=== PATIENT | female | born 1965 | race Asian ===

== ENCOUNTER 2017-09-12 06:25 | Inpatient (IN) | payer OTHER ==
[2017-09-12] MEDS ORDERED: BISACODYL (EC) 5 MG TAB PO (07:30)
[2017-09-12] MEDS ORDERED: DOCUSATE SODIUM 100 MG CAP PO ×2 (07:30→08:30)
[2017-09-12] MEDS ORDERED: NITROGLYCERIN (SL) 0.4 MG TAB SL (07:30)
[2017-09-12] MEDS ORDERED: NACL 0.9% 3 ML SYG IV ×2 (07:30→08:30)
[2017-09-12] MEDS: PIPER-TAZO 3.375 GM IV (PMX) 100 ML IVPB ×3 (08:08→17:44)
[2017-09-12] MEDS ORDERED: ALBUTEROL/IPRATROPIUM (NEB) 3 ML AMP NEB (08:30)
[2017-09-12] MEDS ORDERED: MAGNESIUM HYDROXIDE 30ML CUP PO (08:30)
[2017-09-12 08:41] LABS: ADD MAN DIFF? NO
[2017-09-12 08:46] LABS: ABNORMAL IP MESSAGE 1; BASOPHILS % 0.2 % (0.0-2.0); EOSINOPHILS # 0.1 10^3/ul (0.0-0.5); EOSINOPHILS % 0.7 % (0.0-7.0); HEMATOCRIT 40.7 % (37.0-47.0); HEMOGLOBIN 13.5 g/dl (12.0-16.0); LYMPHOCYTES # 2.7 10^3/ul (0.8-2.9); LYMPHOCYTES % 15.5 % (15.0-51.0); MEAN CORPUSCULAR HEMOGLOBIN 30.2 pg (29.0-33.0); MEAN CORPUSCULAR HGB CONC 33.2 g/dl (32.0-37.0); MEAN CORPUSCULAR VOLUME 91.1 fl (82.0-101.0); MEAN PLATELET VOLUME 10.2 fl (7.4-10.4); MONOCYTE # 1.6 10^3/ul (0.3-0.9); MONOCYTES % 9.3 % (0.0-11.0); NEUTROPHIL # 12.9 10^3/ul (1.6-7.5); PLATELET COUNT 319 10^3/UL (140-415); RED BLOOD COUNT 4.47 10^6/ul (4.20-5.40); RED CELL DISTRIBUTION WIDTH 11.5 % (11.5-14.5)
[2017-09-12 08:46] LABS: WHITE BLOOD COUNT 17.5 10^3/ul (4.8-10.8)
[2017-09-12] MEDS ORDERED: DEXTROSE 50% 50 ML SYRINGE IV ×2 (09:00)
[2017-09-12] MEDS ORDERED: GLUCOSE GEL 15 GRAM TUBE PO ×2 (09:00)
[2017-09-12] MEDS ORDERED: GLUCOSE GEL 15 GRAM TUBE BUCCAL (09:00)
[2017-09-12] MEDS ORDERED: GLUCAGON 1 MG INJ IM (09:00)
[2017-09-12 09:04] LABS: ALANINE AMINOTRANSFERASE 43 IU/L (13-69); ALBUMIN 3.9 g/dl (3.3-4.9); ALBUMIN/GLOBULIN RATIO 1.14; ALKALINE PHOSPHATASE 79 IU/L (42-121); ANION GAP 16 (8-16); ASPARTATE AMINO TRANSFERASE 19 IU/L (15-46); BILIRUBIN,INDIRECT 0.5 mg/dl (0-1.1); BILIRUBIN,TOTAL 0.5 mg/dl (0.2-1.3); BLOOD UREA NITROGEN 11 mg/dl (7-20); CALCIUM 9.2 mg/dl (8.4-10.2); CARBON DIOXIDE 27 mmol/L (21-31); CHLORIDE 102 mmol/L (97-110); CHOL/HDL RATIO 3.5 RATIO; CHOLESTEROL 124 mg/dl (100-200); CREATININE 0.55 mg/dl (0.44-1.00); GLUCOSE 173 mg/dl (70-220); HDL CHOLESTEROL 35 mg/dl (37-92); LDL CHOLESTEROL,CALCULATED 73 mg/dl; MAGNESIUM 2.1 mg/dl (1.7-2.5); POTASSIUM 4.2 mmol/L (3.5-5.1); SODIUM 141 mmol/L (135-144); TOTAL PROTEIN 7.3 g/dl (6.1-8.1); TRIGLYCERIDES 81 mg/dl (0-149)
[2017-09-12 09:12] LABS: HEMOGLOBIN A1C 7.2 % (0-5.9)
[2017-09-12 09:13] LABS: LACTIC ACID 1.6 mmol/L (0.5-2.0)
[2017-09-12] MEDS: ASPIRIN 81 MG TAB PO (09:53)
[2017-09-12] MEDS: FAMOTIDINE 20 MG TAB PO ×2 (09:53→20:44)
[2017-09-12] MEDS: HEPARIN 5,000 UNIT/0.5 ML VIAL SC ×2 (09:55→21:04)
[2017-09-12] MEDS: ACCU-CHEK XX ×3 (10:00→19:55)
[2017-09-12] MEDS: AMLODIPINE 5 MG TAB PO (10:23)
[2017-09-12 10:34] LABS: ADD UMIC YES; UR ASCORBIC ACID 40 mg/dL (NEGATIVE); UR BILIRUBIN (Dip) NEGATIVE (NEGATIVE); UR BLOOD (Dip) NEGATIVE (NEGATIVE); UR CLARITY SLIGHTLY CLOUDY (CLEAR); UR COLOR AMBER (YELLOW); UR GLUCOSE (Dip) 1+ mg/dL (NEGATIVE); UR KETONES (Dip) NEGATIVE (NEGATIVE); UR LEUKOCYTE ESTERASE (Dip) TRACE Leu/ul (NEGATIVE); UR MUCUS MODERATE /HPF (NONE SEEN); UR NITRITE (Dip) NEGATIVE (NEGATIVE); UR RBC 2 /HPF (0-5); UR SPECIFIC GRAVITY (Dip) 1.035 (1.003-1.030); UR SQUAMOUS EPITHELIAL CELL FEW /HPF (FEW); UR TOTAL PROTEIN (Dip) NEGATIVE (NEGATIVE); UR UROBILINOGEN (Dip) NEGATIVE (NEGATIVE); UR WBC 11 /HPF (0-5)
[2017-09-12] MEDS: INSULIN ASPART [NOVOLOG] 3 ML PEN SC ×3 (12:19→20:40)
[2017-09-12] MEDS: HYDROCODONE/APAP (5/325) TAB PO ×2 (12:21→17:29)
[2017-09-12] MEDS: ATORVASTATIN 10 MG TAB PO (20:44)
[2017-09-13] MEDS: PIPER-TAZO 3.375 GM IV (PMX) 100 ML IVPB ×4 (00:36→17:00)
[2017-09-13] MEDS: HYDROCODONE/APAP (5/325) TAB PO ×3 (04:42→20:14)
[2017-09-13 08:30] LABS: ADD MAN DIFF? NO
[2017-09-13 08:41] LABS: WHITE BLOOD COUNT 15.8 10^3/ul (4.8-10.8)
[2017-09-13 08:41] LABS: BASOPHILS % 0.3 % (0.0-2.0); EOSINOPHILS # 0.2 10^3/ul (0.0-0.5); EOSINOPHILS % 1.2 % (0.0-7.0); HEMATOCRIT 39.5 % (37.0-47.0); HEMOGLOBIN 13.2 g/dl (12.0-16.0); LYMPHOCYTES # 2.5 10^3/ul (0.8-2.9); LYMPHOCYTES % 15.6 % (15.0-51.0); MEAN CORPUSCULAR HEMOGLOBIN 30.7 pg (29.0-33.0); MEAN CORPUSCULAR HGB CONC 33.4 g/dl (32.0-37.0); MEAN CORPUSCULAR VOLUME 91.9 fl (82.0-101.0); MEAN PLATELET VOLUME 9.9 fl (7.4-10.4); MONOCYTE # 1.2 10^3/ul (0.3-0.9); MONOCYTES % 7.9 % (0.0-11.0); NEUTROPHIL # 11.8 10^3/ul (1.6-7.5); NEUTROPHILS % 74.7 % (39.0-77.0); PLATELET COUNT 318 10^3/UL (140-415); RED CELL DISTRIBUTION WIDTH 11.4 % (11.5-14.5)
[2017-09-13] MEDS: ASPIRIN 81 MG TAB PO (08:42)
[2017-09-13] MEDS: FAMOTIDINE 20 MG TAB PO ×2 (08:42→20:13)
[2017-09-13] MEDS: AMLODIPINE 5 MG TAB PO (08:42)
[2017-09-13] MEDS: HEPARIN 5,000 UNIT/0.5 ML VIAL SC ×2 (08:52→20:22)
[2017-09-13] MEDS: INSULIN ASPART [NOVOLOG] 3 ML PEN SC ×4 (08:52→20:13)
[2017-09-13 09:07] LABS: ALANINE AMINOTRANSFERASE 51 IU/L (13-69); ALBUMIN 3.5 g/dl (3.3-4.9); ALBUMIN/GLOBULIN RATIO 1.09; ALKALINE PHOSPHATASE 90 IU/L (42-121); ANION GAP 18 (8-16); ASPARTATE AMINO TRANSFERASE 36 IU/L (15-46); BILIRUBIN,INDIRECT 0.6 mg/dl (0-1.1); BILIRUBIN,TOTAL 0.6 mg/dl (0.2-1.3); BLOOD UREA NITROGEN 10 mg/dl (7-20); CALCIUM 8.9 mg/dl (8.4-10.2); CARBON DIOXIDE 27 mmol/L (21-31); CHLORIDE 101 mmol/L (97-110); CREATININE 0.64 mg/dl (0.44-1.00); GLUCOSE 195 mg/dl (70-220); POTASSIUM 3.9 mmol/L (3.5-5.1); SODIUM 142 mmol/L (135-144); TOTAL PROTEIN 6.7 g/dl (6.1-8.1)
[2017-09-13 09:37] LABS: HEPATITIS B SURFACE ANTIGEN NEGATIVE (NEGATIVE)
[2017-09-13 09:55] LABS: HEPATITIS C VIRAL ANTIBODY NEGATIVE (NEGATIVE)
[2017-09-13] MEDS: ACCU-CHEK XX ×3 (10:00→20:05)
[2017-09-13] MEDS: ATORVASTATIN 10 MG TAB PO (20:13)
[2017-09-14] MEDS: PIPER-TAZO 3.375 GM IV (PMX) 100 ML IVPB ×5 (00:14→23:54)
[2017-09-14] MEDS: INSULIN ASPART [NOVOLOG] 3 ML PEN SC ×4 (08:37→20:34)
[2017-09-14] MEDS: FAMOTIDINE 20 MG TAB PO ×2 (08:38→20:27)
[2017-09-14] MEDS: ASPIRIN 81 MG TAB PO (08:38)
[2017-09-14] MEDS: HEPARIN 5,000 UNIT/0.5 ML VIAL SC ×2 (08:38→20:34)
[2017-09-14] MEDS: AMLODIPINE 5 MG TAB PO (08:39)
[2017-09-14] MEDS: HYDROCODONE/APAP (5/325) TAB PO ×3 (08:39→23:55)
[2017-09-14] MEDS: ACCU-CHEK XX ×3 (10:00→20:05)
[2017-09-14] MEDS: GUAIFENESIN/CODEINE 5ML CUP PO (14:23)
[2017-09-14] MEDS: ATORVASTATIN 10 MG TAB PO (20:27)
[2017-09-15] MEDS: PIPER-TAZO 3.375 GM IV (PMX) 100 ML IVPB ×2 (05:20→12:11)
[2017-09-15] MEDS: INSULIN ASPART [NOVOLOG] 3 ML PEN SC ×4 (08:00→21:22)
[2017-09-15] MEDS: FAMOTIDINE 20 MG TAB PO ×2 (08:34→21:20)
[2017-09-15] MEDS: ASPIRIN 81 MG TAB PO (08:34)
[2017-09-15] MEDS: AMLODIPINE 5 MG TAB PO (08:34)
[2017-09-15] MEDS: HEPARIN 5,000 UNIT/0.5 ML VIAL SC ×2 (08:35→21:21)
[2017-09-15] MEDS: HYDROCODONE/APAP (5/325) TAB PO ×3 (08:38→23:56)
[2017-09-15] MEDS: ACCU-CHEK XX ×3 (10:24→21:22)
[2017-09-15 10:32] LABS: ADD MAN DIFF? NO
[2017-09-15 10:35] LABS: ABNORMAL IP MESSAGE 1; BASOPHIL # 0.1 10^3/ul (0.0-0.1); BASOPHILS % 0.3 % (0.0-2.0); EOSINOPHILS # 0.4 10^3/ul (0.0-0.5); HEMATOCRIT 41.1 % (37.0-47.0); LYMPHOCYTES # 2.2 10^3/ul (0.8-2.9); LYMPHOCYTES % 12.5 % (15.0-51.0); MEAN CORPUSCULAR HEMOGLOBIN 30.8 pg (29.0-33.0); MEAN CORPUSCULAR HGB CONC 34.1 g/dl (32.0-37.0); MEAN CORPUSCULAR VOLUME 90.3 fl (82.0-101.0); MEAN PLATELET VOLUME 9.9 fl (7.4-10.4); MONOCYTE # 1.7 10^3/ul (0.3-0.9); MONOCYTES % 9.4 % (0.0-11.0); NEUTROPHIL # 13.3 10^3/ul (1.6-7.5); NEUTROPHILS % 75.2 % (39.0-77.0); PLATELET COUNT 393 10^3/UL (140-415); RED BLOOD COUNT 4.55 10^6/ul (4.20-5.40)
[2017-09-15 10:35] LABS: WHITE BLOOD COUNT 17.6 10^3/ul (4.8-10.8)
[2017-09-15 11:02] LABS: ANION GAP 15 (8-16); BLOOD UREA NITROGEN 12 mg/dl (7-20); CALCIUM 8.6 mg/dl (8.4-10.2); CARBON DIOXIDE 26 mmol/L (21-31); CHLORIDE 98 mmol/L (97-110); GLUCOSE 203 mg/dl (70-220); POTASSIUM 4.1 mmol/L (3.5-5.1); SODIUM 135 mmol/L (135-144)
[2017-09-15] MEDS: GUAIFENESIN/CODEINE 5ML CUP PO ×3 (12:12→21:20)
[2017-09-15 12:48] LABS: NIL 0.02 IU/mL; QUANTIFERON(R)-TB GOLD NEGATIVE (NEGATIVE); TB-NIL 0.03 IU/mL
[2017-09-15] MEDS: LEVOFLOXACIN 500MG/D5W (PMX) 100 ML IVPB (13:09)
[2017-09-15] MEDS: metFORMIN 500 MG TAB PO (17:29)
[2017-09-15] MEDS: ATORVASTATIN 10 MG TAB PO (21:21)
[2017-09-16] MEDS: INSULIN ASPART [NOVOLOG] 3 ML PEN SC ×4 (08:00→20:33)
[2017-09-16 08:25] LABS: ADD MAN DIFF? NO
[2017-09-16] MEDS: FAMOTIDINE 20 MG TAB PO ×2 (08:28→20:35)
[2017-09-16] MEDS: ASPIRIN 81 MG TAB PO (08:28)
[2017-09-16] MEDS: metFORMIN 500 MG TAB PO ×2 (08:28→17:26)
[2017-09-16] MEDS: AMLODIPINE 5 MG TAB PO (08:28)
[2017-09-16] MEDS: HEPARIN 5,000 UNIT/0.5 ML VIAL SC ×2 (08:29→20:43)
[2017-09-16 08:35] LABS: WHITE BLOOD COUNT 17.6 10^3/ul (4.8-10.8)
[2017-09-16 08:35] LABS: ABNORMAL IP MESSAGE 1; BASOPHIL # 0.1 10^3/ul (0.0-0.1); BASOPHILS % 0.5 % (0.0-2.0); EOSINOPHILS # 0.3 10^3/ul (0.0-0.5); EOSINOPHILS % 1.6 % (0.0-7.0); HEMATOCRIT 40.8 % (37.0-47.0); HEMOGLOBIN 13.7 g/dl (12.0-16.0); LYMPHOCYTES # 2.6 10^3/ul (0.8-2.9); LYMPHOCYTES % 14.8 % (15.0-51.0); MEAN CORPUSCULAR HEMOGLOBIN 30.2 pg (29.0-33.0); MEAN CORPUSCULAR HGB CONC 33.6 g/dl (32.0-37.0); MEAN CORPUSCULAR VOLUME 90.1 fl (82.0-101.0); MEAN PLATELET VOLUME 9.8 fl (7.4-10.4); MONOCYTE # 1.9 10^3/ul (0.3-0.9); MONOCYTES % 10.6 % (0.0-11.0); NEUTROPHIL # 12.7 10^3/ul (1.6-7.5); NEUTROPHILS % 71.9 % (39.0-77.0); PLATELET COUNT 388 10^3/UL (140-415); RED BLOOD COUNT 4.53 10^6/ul (4.20-5.40); RED CELL DISTRIBUTION WIDTH 11.2 % (11.5-14.5)
[2017-09-16 08:43] LABS: POSITIVE DIFF @See below
[2017-09-16 09:04] LABS: ANION GAP 15 (8-16); BLOOD UREA NITROGEN 9 mg/dl (7-20); CALCIUM 8.9 mg/dl (8.4-10.2); CARBON DIOXIDE 30 mmol/L (21-31); CHLORIDE 96 mmol/L (97-110); CREATININE 0.66 mg/dl (0.44-1.00); GLUCOSE 145 mg/dl (70-220); POTASSIUM 4.3 mmol/L (3.5-5.1); SODIUM 137 mmol/L (135-144)
[2017-09-16] MEDS: HYDROCODONE/APAP (5/325) TAB PO ×3 (09:06→23:45)
[2017-09-16] MEDS: ACCU-CHEK XX ×3 (10:11→20:05)
[2017-09-16] MEDS: LEVOFLOXACIN 500MG/D5W (PMX) 100 ML IVPB (12:18)
[2017-09-16] MEDS: GUAIFENESIN/CODEINE 5ML CUP PO (12:18)
[2017-09-16] MEDS ORDERED: VANCOMYCIN IV PER PHARMACY XX (13:00)
[2017-09-16] MEDS: CEFEPIME 1GM/50 ML (PMX) 50 ML IVPB ×2 (13:52→23:38)
[2017-09-16 15:34] LABS: INR 0.96; PROTIME 12.9 Sec (11.9-14.9)
[2017-09-16 15:35] LABS: PARTIAL THROMBOPLASTIN TIME 43.9 Sec (25.0-35.0)
[2017-09-16] MEDS: ONDANSETRON 4 MG TAB PO (15:45)
[2017-09-16] MEDS: VANCOMYCIN 1.75 GM in SOD CHLORIDE 0.9% 500 ML IVPB (17:30)
[2017-09-16] MEDS: ONDANSETRON 4 MG INJ IV ×2 (17:35→23:48)
[2017-09-16] MEDS: ATORVASTATIN 10 MG TAB PO (20:35)
[2017-09-17] MEDS: VANCOMYCIN 1.25 GM in SOD CHLORIDE 0.9% 250 ML IVPB ×2 (05:43→17:31)
[2017-09-17 07:11] LABS: ADD MAN DIFF? NO
[2017-09-17 07:17] LABS: WHITE BLOOD COUNT 16.6 10^3/ul (4.8-10.8)
[2017-09-17 07:17] LABS: ABNORMAL IP MESSAGE 1; BASOPHIL # 0.1 10^3/ul (0.0-0.1); BASOPHILS % 0.3 % (0.0-2.0); EOSINOPHILS # 0.3 10^3/ul (0.0-0.5); EOSINOPHILS % 1.6 % (0.0-7.0); HEMATOCRIT 37.9 % (37.0-47.0); HEMOGLOBIN 12.7 g/dl (12.0-16.0); LYMPHOCYTES # 2.6 10^3/ul (0.8-2.9); LYMPHOCYTES % 15.4 % (15.0-51.0); MEAN CORPUSCULAR HEMOGLOBIN 30.5 pg (29.0-33.0); MEAN CORPUSCULAR HGB CONC 33.5 g/dl (32.0-37.0); MEAN CORPUSCULAR VOLUME 91.1 fl (82.0-101.0); MEAN PLATELET VOLUME 9.9 fl (7.4-10.4); MONOCYTES % 11.8 % (0.0-11.0); NEUTROPHIL # 11.7 10^3/ul (1.6-7.5); NEUTROPHILS % 70.3 % (39.0-77.0); PLATELET COUNT 373 10^3/UL (140-415); RED BLOOD COUNT 4.16 10^6/ul (4.20-5.40)
[2017-09-17 07:25] LABS: POSITIVE DIFF @See below
[2017-09-17] MEDS: INSULIN ASPART [NOVOLOG] 3 ML PEN SC ×4 (08:00→20:58)
[2017-09-17] MEDS: ASPIRIN 81 MG TAB PO (08:06)
[2017-09-17] MEDS: metFORMIN 500 MG TAB PO ×2 (08:08→17:24)
[2017-09-17] MEDS: FAMOTIDINE 20 MG TAB PO ×2 (08:08→20:56)
[2017-09-17] MEDS: AMLODIPINE 5 MG TAB PO (08:08)
[2017-09-17] MEDS: HEPARIN 5,000 UNIT/0.5 ML VIAL SC ×2 (09:00→20:57)
[2017-09-17] MEDS: CEFEPIME 1GM/50 ML (PMX) 50 ML IVPB ×2 (10:07→20:57)
[2017-09-17] MEDS: ACCU-CHEK XX ×3 (10:24→20:58)
[2017-09-17] MEDS: LEVOFLOXACIN 500MG/D5W (PMX) 100 ML IVPB (12:11)
[2017-09-17] MEDS: LIDOCAINE 1% (MDV) 10 ML INJ (13:58)
[2017-09-17] MEDS: ONDANSETRON 4 MG INJ IV ×2 (14:31→20:56)
[2017-09-17] MEDS: HYDROCODONE/APAP (5/325) TAB PO (14:44)
[2017-09-17 16:12] LABS: FLD RBC 2000 /uL; FLD WBC 1229 /cmm
[2017-09-17 16:37] LABS: FLUID LD 3958 U/L; FLUID TYPE FLUID
[2017-09-17 16:38] LABS: FLUID TOTAL PROTEIN 4.6 g/dl
[2017-09-17 17:46] LABS: FLD TYPE THORACENTHESIS
[2017-09-17 17:46] LABS: FLD CLARITY HAZY; FLD COLOR YELLOW
[2017-09-17] MEDS: ATORVASTATIN 10 MG TAB PO (20:56)
[2017-09-17] MEDS: LORAZEPAM 0.5 MG TAB PO (20:59)
[2017-09-18] MEDS: HYDROCODONE/APAP (5/325) TAB PO ×2 (02:54→17:16)
[2017-09-18 07:21] LABS: BLOOD UREA NITROGEN 7 mg/dl (7-20)
[2017-09-18 07:21] LABS: CREATININE 0.61 mg/dl (0.44-1.00)
[2017-09-18 07:23] LABS: VANCOMYCIN,TROUGH < 5.0 ug/ml (10.0-20.0)
[2017-09-18] MEDS: HEPARIN 5,000 UNIT/0.5 ML VIAL SC ×2 (08:18→20:26)
[2017-09-18] MEDS: INSULIN ASPART [NOVOLOG] 3 ML PEN SC ×4 (08:19→20:37)
[2017-09-18] MEDS: metFORMIN 500 MG TAB PO ×2 (08:20→17:16)
[2017-09-18] MEDS: VANCOMYCIN 1.25 GM in SOD CHLORIDE 0.9% 250 ML IVPB ×2 (08:20→17:16)
[2017-09-18] MEDS: ASPIRIN 81 MG TAB PO (08:21)
[2017-09-18] MEDS: CEFEPIME 1GM/50 ML (PMX) 50 ML IVPB ×2 (08:21→23:09)
[2017-09-18] MEDS: FAMOTIDINE 20 MG TAB PO ×2 (08:21→20:24)
[2017-09-18] MEDS: AMLODIPINE 5 MG TAB PO (08:22)
[2017-09-18] MEDS: ACCU-CHEK XX ×3 (10:00→20:38)
[2017-09-18] MEDS: LEVOFLOXACIN 500MG/D5W (PMX) 100 ML IVPB (12:02)
[2017-09-18] MEDS: GUAIFENESIN/CODEINE 5ML CUP PO (15:54)
[2017-09-18] MEDS: ONDANSETRON 4 MG TAB PO (17:16)
[2017-09-18] MEDS: LORAZEPAM 0.5 MG TAB PO (20:03)
[2017-09-18] MEDS ORDERED: VITAMIN A & D 5 GM OINT PACKET TOP (20:17)
[2017-09-18] MEDS: ONDANSETRON 4 MG INJ IV (20:24)
[2017-09-18] MEDS: ATORVASTATIN 10 MG TAB PO (20:24)
[2017-09-19] MEDS: VANCOMYCIN 1.25 GM in SOD CHLORIDE 0.9% 250 ML IVPB ×3 (02:33→21:20)
[2017-09-19 06:52] LABS: ADD MAN DIFF? NO
[2017-09-19 06:57] LABS: WHITE BLOOD COUNT 15.2 10^3/ul (4.8-10.8)
[2017-09-19 06:57] LABS: BASOPHILS % 0.3 % (0.0-2.0); EOSINOPHILS # 0.3 10^3/ul (0.0-0.5); EOSINOPHILS % 1.8 % (0.0-7.0); HEMATOCRIT 37.1 % (37.0-47.0); HEMOGLOBIN 12.5 g/dl (12.0-16.0); LYMPHOCYTES # 2.1 10^3/ul (0.8-2.9); LYMPHOCYTES % 13.9 % (15.0-51.0); MEAN CORPUSCULAR HEMOGLOBIN 30.5 pg (29.0-33.0); MEAN CORPUSCULAR HGB CONC 33.7 g/dl (32.0-37.0); MEAN CORPUSCULAR VOLUME 90.5 fl (82.0-101.0); MEAN PLATELET VOLUME 9.8 fl (7.4-10.4); MONOCYTE # 1.4 10^3/ul (0.3-0.9); NEUTROPHIL # 11.3 10^3/ul (1.6-7.5); NEUTROPHILS % 74.6 % (39.0-77.0); PLATELET COUNT 424 10^3/UL (140-415); RED CELL DISTRIBUTION WIDTH 11.1 % (11.5-14.5)
[2017-09-19 07:27] LABS: ANION GAP 12 (8-16); BLOOD UREA NITROGEN 5 mg/dl (7-20); CALCIUM 8.9 mg/dl (8.4-10.2); CARBON DIOXIDE 32 mmol/L (21-31); CHLORIDE 100 mmol/L (97-110); CREATININE 0.54 mg/dl (0.44-1.00); GLUCOSE 157 mg/dl (70-220); SODIUM 140 mmol/L (135-144)
[2017-09-19] MEDS: INSULIN ASPART [NOVOLOG] 3 ML PEN SC ×4 (08:00→21:00)
[2017-09-19] MEDS: metFORMIN 500 MG TAB PO ×2 (08:22→17:23)
[2017-09-19] MEDS: FAMOTIDINE 20 MG TAB PO ×2 (08:23→21:20)
[2017-09-19] MEDS: ASPIRIN 81 MG TAB PO (08:23)
[2017-09-19] MEDS: ACETAMINOPHEN 325 MG TAB PO (08:24)
[2017-09-19] MEDS: AMLODIPINE 5 MG TAB PO (08:24)
[2017-09-19] MEDS: HEPARIN 5,000 UNIT/0.5 ML VIAL SC ×2 (08:25→21:22)
[2017-09-19] MEDS: CEFEPIME 1GM/50 ML (PMX) 50 ML IVPB (08:29)
[2017-09-19] MEDS: ACCU-CHEK XX ×3 (10:00→20:05)
[2017-09-19] MEDS: LEVOFLOXACIN 500MG/D5W (PMX) 100 ML IVPB (12:00)
[2017-09-19 17:14] LABS: VANCOMYCIN,TROUGH 11.8 ug/ml (10.0-20.0)
[2017-09-19] MEDS: ONDANSETRON 4 MG INJ IV (17:22)
[2017-09-19] MEDS: LORAZEPAM 0.5 MG TAB PO (21:20)
[2017-09-19] MEDS: ATORVASTATIN 10 MG TAB PO (21:20)
[2017-09-19] MEDS: ONDANSETRON 4 MG TAB PO (21:33)
[2017-09-20] MEDS: CEFEPIME 1GM/50 ML (PMX) 50 ML IVPB ×3 (00:37→20:45)
[2017-09-20] MEDS: VANCOMYCIN 1.25 GM in SOD CHLORIDE 0.9% 250 ML IVPB ×3 (03:03→18:14)
[2017-09-20 06:51] LABS: ADD MAN DIFF? NO
[2017-09-20 07:02] LABS: WHITE BLOOD COUNT 15.2 10^3/ul (4.8-10.8)
[2017-09-20 07:02] LABS: BASOPHIL # 0.1 10^3/ul (0.0-0.1); BASOPHILS % 0.4 % (0.0-2.0); EOSINOPHILS # 0.3 10^3/ul (0.0-0.5); HEMATOCRIT 35.7 % (37.0-47.0); HEMOGLOBIN 12.1 g/dl (12.0-16.0); LYMPHOCYTES # 2.5 10^3/ul (0.8-2.9); LYMPHOCYTES % 16.1 % (15.0-51.0); MEAN CORPUSCULAR HEMOGLOBIN 30.5 pg (29.0-33.0); MEAN CORPUSCULAR HGB CONC 33.9 g/dl (32.0-37.0); MEAN CORPUSCULAR VOLUME 89.9 fl (82.0-101.0); MEAN PLATELET VOLUME 9.9 fl (7.4-10.4); MONOCYTE # 1.3 10^3/ul (0.3-0.9); MONOCYTES % 8.8 % (0.0-11.0); NEUTROPHILS % 72.2 % (39.0-77.0); PLATELET COUNT 418 10^3/UL (140-415); RED BLOOD COUNT 3.97 10^6/ul (4.20-5.40); RED CELL DISTRIBUTION WIDTH 11.1 % (11.5-14.5)
[2017-09-20 07:24] LABS: ANION GAP 12 (8-16); BLOOD UREA NITROGEN 5 mg/dl (7-20); CALCIUM 8.9 mg/dl (8.4-10.2); CARBON DIOXIDE 30 mmol/L (21-31); CHLORIDE 103 mmol/L (97-110); CREATININE 0.55 mg/dl (0.44-1.00); GLUCOSE 141 mg/dl (70-220); POTASSIUM 3.9 mmol/L (3.5-5.1); SODIUM 141 mmol/L (135-144)
[2017-09-20] MEDS: INSULIN ASPART [NOVOLOG] 3 ML PEN SC ×4 (08:00→21:00)
[2017-09-20] MEDS: FAMOTIDINE 20 MG TAB PO ×2 (09:09→20:43)
[2017-09-20] MEDS: AMLODIPINE 5 MG TAB PO (09:09)
[2017-09-20] MEDS: metFORMIN 500 MG TAB PO ×2 (09:10→18:14)
[2017-09-20] MEDS: ASPIRIN 81 MG TAB PO (09:10)
[2017-09-20] MEDS: HEPARIN 5,000 UNIT/0.5 ML VIAL SC ×2 (09:11→20:43)
[2017-09-20] MEDS: ACCU-CHEK XX ×3 (10:00→20:05)
[2017-09-20] MEDS: LEVOFLOXACIN 500MG/D5W (PMX) 100 ML IVPB (13:50)
[2017-09-20] MEDS: ONDANSETRON 4 MG INJ IV (20:42)
[2017-09-20] MEDS: ATORVASTATIN 10 MG TAB PO (20:43)
[2017-09-20] MEDS: ZOLPIDEM 5 MG TAB PO (20:44)
[2017-09-21] MEDS: VANCOMYCIN 1.25 GM in SOD CHLORIDE 0.9% 250 ML IVPB ×3 (01:56→17:16)
[2017-09-21] MEDS: ACETAMINOPHEN 325 MG TAB PO ×2 (05:55→17:39)
[2017-09-21] MEDS: METOCLOPRAMIDE 10 MG INJ IV ×3 (05:55→17:16)
[2017-09-21] MEDS: INSULIN ASPART [NOVOLOG] 3 ML PEN SC ×4 (08:00→21:00)
[2017-09-21] MEDS: metFORMIN 500 MG TAB PO ×2 (09:00→17:16)
[2017-09-21 09:07] LABS: ADD MAN DIFF? NO
[2017-09-21] MEDS: CEFEPIME 1GM/50 ML (PMX) 50 ML IVPB ×2 (09:11→21:14)
[2017-09-21] MEDS: FAMOTIDINE 20 MG TAB PO ×2 (09:11→21:09)
[2017-09-21] MEDS: ASPIRIN 81 MG TAB PO (09:11)
[2017-09-21] MEDS: AMLODIPINE 5 MG TAB PO (09:11)
[2017-09-21 09:12] LABS: BASOPHIL # 0.1 10^3/ul (0.0-0.1); BASOPHILS % 0.3 % (0.0-2.0); EOSINOPHILS # 0.2 10^3/ul (0.0-0.5); EOSINOPHILS % 1.6 % (0.0-7.0); HEMATOCRIT 37.8 % (37.0-47.0); HEMOGLOBIN 12.6 g/dl (12.0-16.0); LYMPHOCYTES # 2.3 10^3/ul (0.8-2.9); LYMPHOCYTES % 15.3 % (15.0-51.0); MEAN CORPUSCULAR HEMOGLOBIN 30.3 pg (29.0-33.0); MEAN CORPUSCULAR HGB CONC 33.3 g/dl (32.0-37.0); MEAN CORPUSCULAR VOLUME 90.9 fl (82.0-101.0); MEAN PLATELET VOLUME 9.4 fl (7.4-10.4); MONOCYTE # 1.2 10^3/ul (0.3-0.9); MONOCYTES % 7.9 % (0.0-11.0); NEUTROPHIL # 11.3 10^3/ul (1.6-7.5); NEUTROPHILS % 74.5 % (39.0-77.0); PLATELET COUNT 495 10^3/UL (140-415); RED BLOOD COUNT 4.16 10^6/ul (4.20-5.40); RED CELL DISTRIBUTION WIDTH 11.1 % (11.5-14.5)
[2017-09-21 09:12] LABS: WHITE BLOOD COUNT 15.1 10^3/ul (4.8-10.8)
[2017-09-21] MEDS: HEPARIN 5,000 UNIT/0.5 ML VIAL SC ×2 (09:13→21:10)
[2017-09-21 09:34] LABS: PHOSPHORUS 4.1 mg/dl (2.5-4.9)
[2017-09-21 09:34] LABS: ANION GAP 10 (8-16); BLOOD UREA NITROGEN 6 mg/dl (7-20); CALCIUM 9.3 mg/dl (8.4-10.2); CARBON DIOXIDE 34 mmol/L (21-31); CHLORIDE 102 mmol/L (97-110); CREATININE 0.61 mg/dl (0.44-1.00); GLUCOSE 142 mg/dl (70-220); POTASSIUM 4.2 mmol/L (3.5-5.1); SODIUM 142 mmol/L (135-144)
[2017-09-21] MEDS: ACCU-CHEK XX ×3 (10:00→20:05)
[2017-09-21] MEDS: LEVOFLOXACIN 500MG/D5W (PMX) 100 ML IVPB (13:54)
[2017-09-21] MEDS: ATORVASTATIN 10 MG TAB PO (21:09)
[2017-09-21] MEDS: ZOLPIDEM 5 MG TAB PO (21:14)
[2017-09-22] MEDS: ZOLPIDEM 5 MG TAB PO ×3 (00:19→23:21)
[2017-09-22] MEDS: VANCOMYCIN 1.25 GM in SOD CHLORIDE 0.9% 250 ML IVPB ×3 (00:20→17:17)
[2017-09-22] MEDS: ACETAMINOPHEN 325 MG TAB PO ×2 (06:32→21:00)
[2017-09-22] MEDS: INSULIN ASPART [NOVOLOG] 3 ML PEN SC ×4 (08:00→20:57)
[2017-09-22] MEDS: ASPIRIN 81 MG TAB PO (08:49)
[2017-09-22] MEDS: AMLODIPINE 5 MG TAB PO (08:49)
[2017-09-22] MEDS: FAMOTIDINE 20 MG TAB PO ×2 (08:49→21:01)
[2017-09-22] MEDS: metFORMIN 500 MG TAB PO ×2 (08:49→17:17)
[2017-09-22 08:50] LABS: ADD MAN DIFF? NO
[2017-09-22] MEDS: CEFEPIME 1GM/50 ML (PMX) 50 ML IVPB ×2 (08:50→21:02)
[2017-09-22] MEDS: HEPARIN 5,000 UNIT/0.5 ML VIAL SC ×2 (08:51→21:03)
[2017-09-22 08:52] LABS: BASOPHIL # 0.1 10^3/ul (0.0-0.1); BASOPHILS % 0.5 % (0.0-2.0); EOSINOPHILS # 0.2 10^3/ul (0.0-0.5); EOSINOPHILS % 1.7 % (0.0-7.0); HEMATOCRIT 35.8 % (37.0-47.0); HEMOGLOBIN 11.9 g/dl (12.0-16.0); LYMPHOCYTES % 15.1 % (15.0-51.0); MEAN CORPUSCULAR HGB CONC 33.2 g/dl (32.0-37.0); MEAN CORPUSCULAR VOLUME 90.2 fl (82.0-101.0); MEAN PLATELET VOLUME 9.9 fl (7.4-10.4); MONOCYTE # 1.3 10^3/ul (0.3-0.9); NEUTROPHIL # 9.5 10^3/ul (1.6-7.5); NEUTROPHILS % 72.2 % (39.0-77.0); PLATELET COUNT 475 10^3/UL (140-415); RED BLOOD COUNT 3.97 10^6/ul (4.20-5.40)
[2017-09-22 08:52] LABS: WHITE BLOOD COUNT 13.1 10^3/ul (4.8-10.8)
[2017-09-22 09:21] LABS: ANION GAP 15 (8-16); BLOOD UREA NITROGEN 5 mg/dl (7-20); CALCIUM 8.8 mg/dl (8.4-10.2); CARBON DIOXIDE 30 mmol/L (21-31); CHLORIDE 98 mmol/L (97-110); CREATININE 0.58 mg/dl (0.44-1.00); GLUCOSE 129 mg/dl (70-220); POTASSIUM 3.8 mmol/L (3.5-5.1); SODIUM 139 mmol/L (135-144)
[2017-09-22 09:22] LABS: PHOSPHORUS 4.4 mg/dl (2.5-4.9)
[2017-09-22 09:22] LABS: MAGNESIUM 1.9 mg/dl (1.7-2.5)
[2017-09-22] MEDS: ACCU-CHEK XX ×3 (10:00→20:57)
[2017-09-22] MEDS: METOCLOPRAMIDE 10 MG INJ IV ×3 (11:02→23:48)
[2017-09-22] MEDS: LEVOFLOXACIN 500MG/D5W (PMX) 100 ML IVPB (15:10)
[2017-09-22] MEDS: ATORVASTATIN 10 MG TAB PO (21:01)
[2017-09-23] MEDS: VANCOMYCIN 1.25 GM in SOD CHLORIDE 0.9% 250 ML IVPB ×3 (02:50→17:26)
[2017-09-23] MEDS: METOCLOPRAMIDE 10 MG INJ IV ×4 (06:00→23:00)
[2017-09-23 06:23] LABS: ADD MAN DIFF? NO
[2017-09-23 06:24] LABS: BASOPHIL # 0.1 10^3/ul (0.0-0.1); BASOPHILS % 0.6 % (0.0-2.0); EOSINOPHILS # 0.2 10^3/ul (0.0-0.5); EOSINOPHILS % 1.7 % (0.0-7.0); HEMATOCRIT 35.2 % (37.0-47.0); HEMOGLOBIN 11.9 g/dl (12.0-16.0); LYMPHOCYTES # 1.7 10^3/ul (0.8-2.9); LYMPHOCYTES % 16.8 % (15.0-51.0); MEAN CORPUSCULAR HEMOGLOBIN 30.5 pg (29.0-33.0); MEAN CORPUSCULAR HGB CONC 33.8 g/dl (32.0-37.0); MEAN CORPUSCULAR VOLUME 90.3 fl (82.0-101.0); MEAN PLATELET VOLUME 9.4 fl (7.4-10.4); MONOCYTE # 1.2 10^3/ul (0.3-0.9); NEUTROPHIL # 6.8 10^3/ul (1.6-7.5); NEUTROPHILS % 68.4 % (39.0-77.0); PLATELET COUNT 466 10^3/UL (140-415); RED CELL DISTRIBUTION WIDTH 11.2 % (11.5-14.5)
[2017-09-23 06:24] LABS: WHITE BLOOD COUNT 9.9 10^3/ul (4.8-10.8)
[2017-09-23 06:44] LABS: MAGNESIUM 1.9 mg/dl (1.7-2.5)
[2017-09-23 06:44] LABS: PHOSPHORUS 3.9 mg/dl (2.5-4.9)
[2017-09-23 06:46] LABS: ANION GAP 12 (8-16); BLOOD UREA NITROGEN 4 mg/dl (7-20); CALCIUM 8.8 mg/dl (8.4-10.2); CARBON DIOXIDE 31 mmol/L (21-31); CHLORIDE 102 mmol/L (97-110); CREATININE 0.52 mg/dl (0.44-1.00); GLUCOSE 134 mg/dl (70-220); SODIUM 141 mmol/L (135-144)
[2017-09-23] MEDS: ACETAMINOPHEN 325 MG TAB PO ×2 (07:34→15:35)
[2017-09-23] MEDS: INSULIN ASPART [NOVOLOG] 3 ML PEN SC ×4 (07:36→21:00)
[2017-09-23] MEDS: metFORMIN 500 MG TAB PO ×2 (08:41→17:25)
[2017-09-23] MEDS: AMLODIPINE 5 MG TAB PO (08:43)
[2017-09-23] MEDS: ASPIRIN 81 MG TAB PO (08:43)
[2017-09-23] MEDS: CEFEPIME 1GM/50 ML (PMX) 50 ML IVPB ×2 (08:43→21:30)
[2017-09-23] MEDS: FAMOTIDINE 20 MG TAB PO ×2 (08:43→21:29)
[2017-09-23] MEDS: HEPARIN 5,000 UNIT/0.5 ML VIAL SC ×2 (08:44→21:51)
[2017-09-23] MEDS: ACCU-CHEK XX ×3 (10:01→21:27)
[2017-09-23] MEDS: LEVOFLOXACIN 500MG/D5W (PMX) 100 ML IVPB (13:09)
[2017-09-23] MEDS: LORAZEPAM 0.5 MG TAB PO (14:29)
[2017-09-23] MEDS: PROCHLORPERAZINE 10 MG INJ IV (17:36)
[2017-09-23] MEDS: ZOLPIDEM 5 MG TAB PO (21:28)
[2017-09-23] MEDS: ATORVASTATIN 10 MG TAB PO (21:28)
[2017-09-24] MEDS: ZOLPIDEM 5 MG TAB PO ×2 (00:34→21:05)
[2017-09-24] MEDS: ACETAMINOPHEN 325 MG TAB PO ×2 (00:34→16:41)
[2017-09-24] MEDS: VANCOMYCIN 1.25 GM in SOD CHLORIDE 0.9% 250 ML IVPB ×3 (01:21→17:22)
[2017-09-24] MEDS: METOCLOPRAMIDE 10 MG INJ IV ×3 (06:00→17:22)
[2017-09-24] MEDS: INSULIN ASPART [NOVOLOG] 3 ML PEN SC ×4 (08:00→21:00)
[2017-09-24] MEDS: FAMOTIDINE 20 MG TAB PO ×2 (08:57→21:05)
[2017-09-24] MEDS: ASPIRIN 81 MG TAB PO (08:57)
[2017-09-24] MEDS: AMLODIPINE 5 MG TAB PO (08:57)
[2017-09-24] MEDS: CEFEPIME 1GM/50 ML (PMX) 50 ML IVPB ×2 (08:57→21:05)
[2017-09-24] MEDS: metFORMIN 500 MG TAB PO ×2 (08:57→17:20)
[2017-09-24] MEDS: HEPARIN 5,000 UNIT/0.5 ML VIAL SC ×2 (09:02→21:13)
[2017-09-24] MEDS: ACCU-CHEK XX ×3 (10:09→20:51)
[2017-09-24] MEDS: LORAZEPAM 0.5 MG TAB PO (11:42)
[2017-09-24] MEDS: LEVOFLOXACIN 500MG/D5W (PMX) 100 ML IVPB (13:32)
[2017-09-24] MEDS: SERTRALINE 50 MG TAB PO (13:33)
[2017-09-24] MEDS: LORAZEPAM 2 MG INJ IV (18:52)
[2017-09-24] MEDS: ATORVASTATIN 10 MG TAB PO (21:05)
[2017-09-25] MEDS: ZOLPIDEM 5 MG TAB PO ×2 (00:13→20:51)
[2017-09-25] MEDS: METOCLOPRAMIDE 10 MG INJ IV ×5 (00:14→23:06)
[2017-09-25] MEDS: VANCOMYCIN 1.25 GM in SOD CHLORIDE 0.9% 250 ML IVPB ×3 (02:12→17:17)
[2017-09-25] MEDS: INSULIN ASPART [NOVOLOG] 3 ML PEN SC ×4 (08:00→21:00)
[2017-09-25] MEDS: AMLODIPINE 5 MG TAB PO (08:04)
[2017-09-25] MEDS: CEFEPIME 1GM/50 ML (PMX) 50 ML IVPB ×2 (08:04→20:51)
[2017-09-25] MEDS: ASPIRIN 81 MG TAB PO (08:04)
[2017-09-25] MEDS: SERTRALINE 50 MG TAB PO (08:04)
[2017-09-25] MEDS: metFORMIN 500 MG TAB PO ×2 (08:04→17:17)
[2017-09-25] MEDS: FAMOTIDINE 20 MG TAB PO ×2 (08:04→20:51)
[2017-09-25] MEDS: ACETAMINOPHEN 325 MG TAB PO ×2 (08:13→17:17)
[2017-09-25] MEDS: HEPARIN 5,000 UNIT/0.5 ML VIAL SC ×2 (08:13→21:06)
[2017-09-25] MEDS: ACCU-CHEK XX ×2 (10:00→14:00)
[2017-09-25] MEDS: LEVOFLOXACIN 500MG/D5W (PMX) 100 ML IVPB (12:10)
[2017-09-25] MEDS: LORAZEPAM 2 MG INJ IV (12:11)
[2017-09-25] MEDS: ATORVASTATIN 10 MG TAB PO (20:51)
[2017-09-25] MEDS ORDERED: DIPHENHYDRAMINE 25 MG CAP PO (21:30)
[2017-09-25] MEDS: DIPHENHYDRAMINE 25 MG CAP PO (23:06)
[2017-09-26] MEDS: VANCOMYCIN 1.25 GM in SOD CHLORIDE 0.9% 250 ML IVPB ×3 (01:55→18:51)
[2017-09-26] MEDS: ACETAMINOPHEN 325 MG TAB PO ×3 (01:58→17:11)
[2017-09-26] MEDS: METOCLOPRAMIDE 10 MG INJ IV ×3 (05:34→17:11)
[2017-09-26] MEDS: INSULIN ASPART [NOVOLOG] 3 ML PEN SC ×4 (08:00→20:28)
[2017-09-26] MEDS: ASPIRIN 81 MG TAB PO (08:11)
[2017-09-26] MEDS: AMLODIPINE 5 MG TAB PO (08:11)
[2017-09-26] MEDS: FAMOTIDINE 20 MG TAB PO ×2 (08:11→20:28)
[2017-09-26] MEDS: CEFEPIME 1GM/50 ML (PMX) 50 ML IVPB ×2 (08:11→20:27)
[2017-09-26] MEDS: metFORMIN 500 MG TAB PO ×2 (08:11→17:11)
[2017-09-26] MEDS: SERTRALINE 50 MG TAB PO (08:13)
[2017-09-26] MEDS: HEPARIN 5,000 UNIT/0.5 ML VIAL SC (08:34)
[2017-09-26] MEDS: LEVOFLOXACIN 500MG/D5W (PMX) 100 ML IVPB (12:07)
[2017-09-26] MEDS: PROCHLORPERAZINE 10 MG INJ IV (15:09)
[2017-09-26 17:32] LABS: VANCOMYCIN,TROUGH 14.9 ug/ml (10.0-20.0)
[2017-09-26] MEDS: ATORVASTATIN 10 MG TAB PO (20:27)
[2017-09-26] MEDS: ZOLPIDEM 5 MG TAB PO (20:28)
[2017-09-27] MEDS: DIPHENHYDRAMINE 25 MG CAP PO (00:08)
[2017-09-27] MEDS: METOCLOPRAMIDE 10 MG INJ IV ×5 (00:08→22:51)
[2017-09-27] MEDS: VANCOMYCIN 1.25 GM in SOD CHLORIDE 0.9% 250 ML IVPB ×3 (01:25→17:29)
[2017-09-27] MEDS: ACETAMINOPHEN 325 MG TAB PO ×2 (03:43→10:40)
[2017-09-27 07:41] LABS: ADD MAN DIFF? NO
[2017-09-27 07:50] LABS: WHITE BLOOD COUNT 3.9 10^3/ul (4.8-10.8)
[2017-09-27 07:50] LABS: BASOPHILS % 0.5 % (0.0-2.0); EOSINOPHILS % 0.3 % (0.0-7.0); HEMATOCRIT 36.7 % (37.0-47.0); HEMOGLOBIN 12.2 g/dl (12.0-16.0); LYMPHOCYTES # 1.1 10^3/ul (0.8-2.9); LYMPHOCYTES % 28.9 % (15.0-51.0); MEAN CORPUSCULAR HEMOGLOBIN 30.1 pg (29.0-33.0); MEAN CORPUSCULAR HGB CONC 33.2 g/dl (32.0-37.0); MEAN CORPUSCULAR VOLUME 90.6 fl (82.0-101.0); MEAN PLATELET VOLUME 9.3 fl (7.4-10.4); MONOCYTE # 0.7 10^3/ul (0.3-0.9); MONOCYTES % 16.8 % (0.0-11.0); NEUTROPHIL # 2.1 10^3/ul (1.6-7.5); PLATELET COUNT 321 10^3/UL (140-415); RED BLOOD COUNT 4.05 10^6/ul (4.20-5.40); RED CELL DISTRIBUTION WIDTH 11.2 % (11.5-14.5)
[2017-09-27] MEDS: INSULIN ASPART [NOVOLOG] 3 ML PEN SC ×4 (08:00→21:00)
[2017-09-27] MEDS: metFORMIN 500 MG TAB PO ×2 (08:00→17:29)
[2017-09-27 08:06] LABS: ANION GAP 11 (8-16); BLOOD UREA NITROGEN 7 mg/dl (7-20); CALCIUM 8.6 mg/dl (8.4-10.2); CARBON DIOXIDE 31 mmol/L (21-31); CHLORIDE 99 mmol/L (97-110); CREATININE 0.61 mg/dl (0.44-1.00); GLUCOSE 105 mg/dl (70-220); INR 1.03; POTASSIUM 3.9 mmol/L (3.5-5.1); PROTIME 13.6 Sec (11.9-14.9); PT RATIO 1.1; SODIUM 137 mmol/L (135-144)
[2017-09-27 08:07] LABS: PARTIAL THROMBOPLASTIN TIME 40.7 Sec (25.0-35.0)
[2017-09-27 08:15] LABS: PHOSPHORUS 3.8 mg/dl (2.5-4.9)
[2017-09-27] MEDS: AMLODIPINE 5 MG TAB PO (08:54)
[2017-09-27] MEDS: FAMOTIDINE 20 MG TAB PO ×2 (08:54→21:00)
[2017-09-27] MEDS: ASPIRIN 81 MG TAB PO (08:54)
[2017-09-27] MEDS: SERTRALINE 50 MG TAB PO (08:54)
[2017-09-27] MEDS: CEFEPIME 1GM/50 ML (PMX) 50 ML IVPB (08:57)
[2017-09-27] MEDS: D5W-0.45 NACL + KCL 20 MEQ 1,000 ML IV (10:40)
[2017-09-27] MEDS: LEVOFLOXACIN 500MG/D5W (PMX) 100 ML IVPB (12:25)
[2017-09-27] MEDS ORDERED: FENTAnyl 50 MCG/ML VIAL (20:04)
[2017-09-27] MEDS ORDERED: PROVENTIL HFA 6.7GM INHALER (20:29)
[2017-09-27] MEDS: ATORVASTATIN 10 MG TAB PO (21:00)
[2017-09-27] MEDS: HEMOSTATIC MATRIX SYG ZFS (21:23)
[2017-09-27] MEDS ORDERED: PROPOFOL 20 ML (21:48)
[2017-09-27] MEDS ORDERED: LIDOCAINE 100 MG SYRINGE (21:48)
[2017-09-27] MEDS ORDERED: SUGAMMADEX SODIUM 200 MG/2 ML VIAL IV (21:48)
[2017-09-27] MEDS ORDERED: SUCCINYLCHOLINE CHLORIDE 100 MG/5 ML SYG IV (21:48)
[2017-09-27] MEDS ORDERED: ROCURONIUM 50 MG INJ (21:48)
[2017-09-27] MEDS ORDERED: CEFAZOLIN 1 GM INJ (21:48)
[2017-09-27] MEDS ORDERED: morphine 4 MG/ML VIAL IV (22:00)
[2017-09-27] MEDS: ONDANSETRON 4 MG INJ IV (22:27)
[2017-09-27] MEDS ORDERED: LABETALOL HCL 20MG INJ IV (22:30)
[2017-09-27] MEDS ORDERED: ALBUTEROL 0.083% (NEB) 2.5 MG/3 ML AMP HHN (22:30)
[2017-09-27] MEDS ORDERED: FENTAnyl 50 MCG/ML VIAL IV ×2 (22:30)
[2017-09-27] MEDS ORDERED: LEVALBUTEROL (NEB) 0.63 MG/3 ML AMP HHN (22:30)
[2017-09-27] MEDS ORDERED: MEPERIDINE 25 MG INJ IV (22:30)
[2017-09-27] MEDS ORDERED: HYDROmorphONE (0.2 MG/ML) 10ML SYG IV ×2 (22:30)
[2017-09-27 22:41] LABS: ADD MAN DIFF? NO
[2017-09-27 22:42] LABS: BASOPHILS % 0.3 % (0.0-2.0); EOSINOPHILS % 0.3 % (0.0-7.0); HEMATOCRIT 36.6 % (37.0-47.0); HEMOGLOBIN 12.2 g/dl (12.0-16.0); LYMPHOCYTES # 1.2 10^3/ul (0.8-2.9); MEAN CORPUSCULAR HEMOGLOBIN 30.3 pg (29.0-33.0); MEAN CORPUSCULAR HGB CONC 33.3 g/dl (32.0-37.0); MEAN CORPUSCULAR VOLUME 90.8 fl (82.0-101.0); MEAN PLATELET VOLUME 9.4 fl (7.4-10.4); MONOCYTE # 0.7 10^3/ul (0.3-0.9); MONOCYTES % 9.3 % (0.0-11.0); NEUTROPHIL # 5.2 10^3/ul (1.6-7.5); NEUTROPHILS % 72.7 % (39.0-77.0); PLATELET COUNT 315 10^3/UL (140-415); RED BLOOD COUNT 4.03 10^6/ul (4.20-5.40); RED CELL DISTRIBUTION WIDTH 11.1 % (11.5-14.5)
[2017-09-27 22:42] LABS: WHITE BLOOD COUNT 7.1 10^3/ul (4.8-10.8)
[2017-09-27 23:00] LABS: ANION GAP 16 (8-16); BLOOD UREA NITROGEN 9 mg/dl (7-20); CARBON DIOXIDE 25 mmol/L (21-31); CHLORIDE 97 mmol/L (97-110); CREATININE 0.55 mg/dl (0.44-1.00); GLUCOSE 158 mg/dl (70-220); POTASSIUM 3.7 mmol/L (3.5-5.1); SODIUM 134 mmol/L (135-144)
[2017-09-27] MEDS: HYDROmorphONE (0.2 MG/ML) 10ML SYG IV ×2 (23:05→23:36)
[2017-09-28] MEDS: METOCLOPRAMIDE 10 MG INJ IV ×4 (00:11→17:23)
[2017-09-28] MEDS: HYDROmorphONE (0.2 MG/ML) 10ML SYG IV ×2 (00:11→01:04)
[2017-09-28] MEDS: DIPHENHYDRAMINE 50 MG INJ IV (01:33)
[2017-09-28] MEDS ORDERED: VANCOMYCIN 1 GM (PMX) 0 ML (02:04)
[2017-09-28] MEDS: CEFEPIME 1GM/50 ML (PMX) 50 ML IVPB ×3 (02:07→20:33)
[2017-09-28] MEDS: 1/2 NS + KCL 20 MEQ 1,000 ML IV ×3 (02:08→13:19)
[2017-09-28] MEDS: LORAZEPAM 2 MG INJ IV (02:10)
[2017-09-28] MEDS: HYDROmorphONE 0.5 MG/0.5 ML SYG IV ×4 (04:10→19:02)
[2017-09-28] MEDS: VANCOMYCIN 1.25 GM in SOD CHLORIDE 0.9% 250 ML IVPB ×3 (04:16→17:25)
[2017-09-28 05:20] LABS: ADD MAN DIFF? NO
[2017-09-28 05:24] LABS: BASOPHILS % 0.2 % (0.0-2.0); HEMATOCRIT 34.2 % (37.0-47.0); HEMOGLOBIN 11.4 g/dl (12.0-16.0); LYMPHOCYTES % 16.1 % (15.0-51.0); MEAN CORPUSCULAR HEMOGLOBIN 30.6 pg (29.0-33.0); MEAN CORPUSCULAR HGB CONC 33.3 g/dl (32.0-37.0); MEAN CORPUSCULAR VOLUME 91.9 fl (82.0-101.0); MEAN PLATELET VOLUME 9.8 fl (7.4-10.4); MONOCYTE # 0.5 10^3/ul (0.3-0.9); MONOCYTES % 8.9 % (0.0-11.0); NEUTROPHIL # 4.5 10^3/ul (1.6-7.5); NEUTROPHILS % 74.5 % (39.0-77.0); PLATELET COUNT 308 10^3/UL (140-415); RED BLOOD COUNT 3.72 10^6/ul (4.20-5.40); RED CELL DISTRIBUTION WIDTH 11.4 % (11.5-14.5)
[2017-09-28 05:53] LABS: ANION GAP 12 (8-16); BLOOD UREA NITROGEN 9 mg/dl (7-20); CALCIUM 8.1 mg/dl (8.4-10.2); CARBON DIOXIDE 29 mmol/L (21-31); CHLORIDE 101 mmol/L (97-110); CREATININE 0.53 mg/dl (0.44-1.00); GLUCOSE 116 mg/dl (70-220); POTASSIUM 4.2 mmol/L (3.5-5.1); SODIUM 138 mmol/L (135-144)
[2017-09-28] MEDS: INSULIN ASPART [NOVOLOG] 3 ML PEN SC ×4 (07:35→20:36)
[2017-09-28] MEDS: metFORMIN 500 MG TAB PO ×2 (07:50→17:24)
[2017-09-28] MEDS: HYDROCODONE/APAP (5/325) TAB PO ×2 (07:51→11:07)
[2017-09-28] MEDS: ASPIRIN 81 MG TAB PO (08:39)
[2017-09-28] MEDS: AMLODIPINE 5 MG TAB PO (08:40)
[2017-09-28] MEDS: SERTRALINE 50 MG TAB PO (08:41)
[2017-09-28] MEDS: FAMOTIDINE 20 MG TAB PO ×2 (08:41→20:32)
[2017-09-28] MEDS: LEVOFLOXACIN 500MG/D5W (PMX) 100 ML IVPB (13:17)
[2017-09-28] MEDS: PROCHLORPERAZINE 10 MG INJ IV (15:59)
[2017-09-28] MEDS: ACETAMINOPHEN 325 MG TAB PO (19:43)
[2017-09-28] MEDS: ATORVASTATIN 10 MG TAB PO (20:32)
[2017-09-28] MEDS: ZOLPIDEM 5 MG TAB PO ×2 (20:38→22:21)
[2017-09-29] MEDS: METOCLOPRAMIDE 10 MG INJ IV ×5 (00:09→23:27)
[2017-09-29] MEDS: HYDROmorphONE 0.5 MG/0.5 ML SYG IV ×5 (01:27→19:51)
[2017-09-29] MEDS: VANCOMYCIN 1.25 GM in SOD CHLORIDE 0.9% 250 ML IVPB ×3 (01:30→17:43)
[2017-09-29] MEDS: ACETAMINOPHEN 325 MG TAB PO ×2 (01:57→15:11)
[2017-09-29] MEDS: 1/2 NS + KCL 20 MEQ 1,000 ML IV ×3 (05:01→23:27)
[2017-09-29 05:49] LABS: ADD MAN DIFF? NO
[2017-09-29 05:59] LABS: BASOPHILS % 0.2 % (0.0-2.0); EOSINOPHILS # 0.1 10^3/ul (0.0-0.5); EOSINOPHILS % 1.2 % (0.0-7.0); HEMATOCRIT 34.1 % (37.0-47.0); HEMOGLOBIN 11.2 g/dl (12.0-16.0); LYMPHOCYTES # 1.2 10^3/ul (0.8-2.9); LYMPHOCYTES % 24.9 % (15.0-51.0); MEAN CORPUSCULAR HEMOGLOBIN 30.1 pg (29.0-33.0); MEAN CORPUSCULAR HGB CONC 32.8 g/dl (32.0-37.0); MEAN CORPUSCULAR VOLUME 91.7 fl (82.0-101.0); MEAN PLATELET VOLUME 9.8 fl (7.4-10.4); MONOCYTE # 0.6 10^3/ul (0.3-0.9); MONOCYTES % 12.7 % (0.0-11.0); NEUTROPHILS % 60.6 % (39.0-77.0); PLATELET COUNT 286 10^3/UL (140-415); RED BLOOD COUNT 3.72 10^6/ul (4.20-5.40); RED CELL DISTRIBUTION WIDTH 11.3 % (11.5-14.5)
[2017-09-29 06:06] LABS: ANION GAP 8 (8-16); BLOOD UREA NITROGEN 5 mg/dl (7-20); CALCIUM 8.2 mg/dl (8.4-10.2); CARBON DIOXIDE 31 mmol/L (21-31); CHLORIDE 99 mmol/L (97-110); CREATININE 0.53 mg/dl (0.44-1.00); GLUCOSE 119 mg/dl (70-220); POTASSIUM 3.7 mmol/L (3.5-5.1); SODIUM 134 mmol/L (135-144)
[2017-09-29] MEDS: INSULIN ASPART [NOVOLOG] 3 ML PEN SC ×4 (08:15→20:24)
[2017-09-29] MEDS: ONDANSETRON 4 MG INJ IV ×2 (08:54→14:55)
[2017-09-29] MEDS: SERTRALINE 50 MG TAB PO (08:59)
[2017-09-29] MEDS: FAMOTIDINE 20 MG TAB PO ×2 (08:59→20:17)
[2017-09-29] MEDS: AMLODIPINE 5 MG TAB PO (08:59)
[2017-09-29] MEDS: ASPIRIN 81 MG TAB PO (08:59)
[2017-09-29] MEDS: metFORMIN 500 MG TAB PO ×2 (08:59→17:43)
[2017-09-29] MEDS: CEFEPIME 1GM/50 ML (PMX) 50 ML IVPB ×2 (09:00→20:16)
[2017-09-29] MEDS: HYDROCODONE/APAP (5/325) TAB PO ×2 (10:34→20:17)
[2017-09-29] MEDS: LEVOFLOXACIN 500MG/D5W (PMX) 100 ML IVPB (12:44)
[2017-09-29] MEDS: LORAZEPAM 2 MG INJ IV (15:07)
[2017-09-29] MEDS: ATORVASTATIN 10 MG TAB PO (20:17)
[2017-09-29] MEDS: ZOLPIDEM 5 MG TAB PO (21:36)
[2017-09-30] MEDS: HYDROmorphONE 0.5 MG/0.5 ML SYG IV ×7 (00:07→21:28)
[2017-09-30] MEDS: ZOLPIDEM 5 MG TAB PO ×3 (00:07→23:36)
[2017-09-30 02:24] LABS: VANCOMYCIN,TROUGH 16.8 ug/ml (10.0-20.0)
[2017-09-30] MEDS: VANCOMYCIN 1.25 GM in SOD CHLORIDE 0.9% 250 ML IVPB ×2 (02:57→10:09)
[2017-09-30] MEDS: HYDROCODONE/APAP (5/325) TAB PO ×2 (05:01→12:06)
[2017-09-30] MEDS: METOCLOPRAMIDE 10 MG INJ IV ×4 (05:02→23:36)
[2017-09-30 06:01] LABS: ADD MAN DIFF? NO
[2017-09-30 06:07] LABS: WHITE BLOOD COUNT 4.7 10^3/ul (4.8-10.8)
[2017-09-30 06:07] LABS: BASOPHILS % 0.4 % (0.0-2.0); EOSINOPHILS # 0.2 10^3/ul (0.0-0.5); EOSINOPHILS % 3.6 % (0.0-7.0); HEMATOCRIT 33.1 % (37.0-47.0); LYMPHOCYTES # 1.5 10^3/ul (0.8-2.9); LYMPHOCYTES % 32.3 % (15.0-51.0); MEAN CORPUSCULAR HEMOGLOBIN 30.3 pg (29.0-33.0); MEAN CORPUSCULAR HGB CONC 33.2 g/dl (32.0-37.0); MEAN CORPUSCULAR VOLUME 91.2 fl (82.0-101.0); MEAN PLATELET VOLUME 9.6 fl (7.4-10.4); MONOCYTE # 0.7 10^3/ul (0.3-0.9); MONOCYTES % 14.1 % (0.0-11.0); NEUTROPHIL # 2.3 10^3/ul (1.6-7.5); NEUTROPHILS % 49.2 % (39.0-77.0); PLATELET COUNT 258 10^3/UL (140-415); RED BLOOD COUNT 3.63 10^6/ul (4.20-5.40); RED CELL DISTRIBUTION WIDTH 11.3 % (11.5-14.5)
[2017-09-30] MEDS: LORAZEPAM 2 MG INJ IV (06:16)
[2017-09-30 06:25] LABS: ANION GAP 13 (8-16); BLOOD UREA NITROGEN 4 mg/dl (7-20); CALCIUM 8.3 mg/dl (8.4-10.2); CARBON DIOXIDE 30 mmol/L (21-31); CHLORIDE 99 mmol/L (97-110); GLUCOSE 102 mg/dl (70-220); POTASSIUM 3.7 mmol/L (3.5-5.1); SODIUM 138 mmol/L (135-144)
[2017-09-30 06:33] LABS: PHOSPHORUS 3.6 mg/dl (2.5-4.9)
[2017-09-30 06:33] LABS: MAGNESIUM 1.9 mg/dl (1.7-2.5)
[2017-09-30] MEDS: FAMOTIDINE 20 MG TAB PO ×2 (08:03→21:25)
[2017-09-30] MEDS: AMLODIPINE 5 MG TAB PO (08:03)
[2017-09-30] MEDS: SERTRALINE 50 MG TAB PO (08:03)
[2017-09-30] MEDS: metFORMIN 500 MG TAB PO ×2 (08:03→18:39)
[2017-09-30] MEDS: ASPIRIN 81 MG TAB PO (08:03)
[2017-09-30] MEDS: CEFEPIME 1GM/50 ML (PMX) 50 ML IVPB (08:04)
[2017-09-30] MEDS: INSULIN ASPART [NOVOLOG] 3 ML PEN SC ×4 (08:09→21:00)
[2017-09-30] MEDS: 1/2 NS + KCL 20 MEQ 1,000 ML IV ×2 (11:00→17:37)
[2017-09-30] MEDS: LORATADINE 10 MG TAB PO (15:14)
[2017-09-30] MEDS: HYDROCORTISONE 1% 28.35 GM OINT TOP ×2 (15:14→21:58)
[2017-09-30] MEDS: ATORVASTATIN 10 MG TAB PO (21:25)
[2017-09-30] MEDS: DOXYCYCLINE 100 MG TAB PO (21:25)
[2017-10-01] MEDS: 1/2 NS + KCL 20 MEQ 1,000 ML IV (03:54)
[2017-10-01] MEDS: HYDROmorphONE 0.5 MG/0.5 ML SYG IV (03:54)
[2017-10-01] MEDS: METOCLOPRAMIDE 10 MG INJ IV ×2 (05:31→11:55)
[2017-10-01] MEDS: LEVOFLOXACIN 500 MG TAB PO (05:32)
[2017-10-01 05:57] LABS: ADD MAN DIFF? NO
[2017-10-01 06:03] LABS: BASOPHILS % 0.3 % (0.0-2.0); EOSINOPHILS # 0.2 10^3/ul (0.0-0.5); EOSINOPHILS % 3.2 % (0.0-7.0); HEMATOCRIT 35.2 % (37.0-47.0); HEMOGLOBIN 11.8 g/dl (12.0-16.0); LYMPHOCYTES # 1.5 10^3/ul (0.8-2.9); LYMPHOCYTES % 22.6 % (15.0-51.0); MEAN CORPUSCULAR HEMOGLOBIN 30.2 pg (29.0-33.0); MEAN CORPUSCULAR HGB CONC 33.5 g/dl (32.0-37.0); MEAN PLATELET VOLUME 9.5 fl (7.4-10.4); MONOCYTE # 0.8 10^3/ul (0.3-0.9); MONOCYTES % 11.9 % (0.0-11.0); NEUTROPHIL # 4.1 10^3/ul (1.6-7.5); NEUTROPHILS % 61.7 % (39.0-77.0); PLATELET COUNT 313 10^3/UL (140-415); RED BLOOD COUNT 3.91 10^6/ul (4.20-5.40); RED CELL DISTRIBUTION WIDTH 11.2 % (11.5-14.5)
[2017-10-01 06:03] LABS: WHITE BLOOD COUNT 6.6 10^3/ul (4.8-10.8)
[2017-10-01 06:37] LABS: MAGNESIUM 1.8 mg/dl (1.7-2.5)
[2017-10-01 06:37] LABS: PHOSPHORUS 3.4 mg/dl (2.5-4.9)
[2017-10-01 06:41] LABS: ANION GAP 9 (8-16); BLOOD UREA NITROGEN 3 mg/dl (7-20); CALCIUM 8.7 mg/dl (8.4-10.2); CARBON DIOXIDE 34 mmol/L (21-31); CHLORIDE 99 mmol/L (97-110); CREATININE 0.49 mg/dl (0.44-1.00); GLUCOSE 118 mg/dl (70-220); POTASSIUM 4.2 mmol/L (3.5-5.1); SODIUM 138 mmol/L (135-144)
[2017-10-01] MEDS: PROCHLORPERAZINE 10 MG INJ IV (07:40)
[2017-10-01] MEDS: metFORMIN 500 MG TAB PO (08:05)
[2017-10-01] MEDS: AMLODIPINE 5 MG TAB PO (08:05)
[2017-10-01] MEDS: DOXYCYCLINE 100 MG TAB PO (08:05)
[2017-10-01] MEDS: FAMOTIDINE 20 MG TAB PO (08:05)
[2017-10-01] MEDS: LORATADINE 10 MG TAB PO (08:05)
[2017-10-01] MEDS: SERTRALINE 50 MG TAB PO (08:05)
[2017-10-01] MEDS: ASPIRIN 81 MG TAB PO (08:05)
[2017-10-01] MEDS: HYDROCORTISONE 1% 28.35 GM OINT TOP (08:06)
[2017-10-01] MEDS: INSULIN ASPART [NOVOLOG] 3 ML PEN SC (08:06)
[2017-10-05] MEDS ORDERED: ENOXAPARIN 40 MG/0.4 ML SYG SC (09:00)
== END 2017-10-01 12:35 | disposition home or self-care (01) | DRG 164 ==
LOC: ICU 09-28 00:26 → TEL 06:25 → MS4 22:06 → MS2 09-28 14:35
PROC: 0BNK4ZZ Release Right Lung, Percutaneous Endoscopic Approach (ICD-10-PCS; principal; 2017-09-27 18:30)
PROC: 0W9940Z Drainage of Right Pleural Cavity with Drainage Device, Percutaneous Endoscopic Approach (ICD-10-PCS; 2017-09-27 18:30)
PROC: 0BJ08ZZ Inspection of Tracheobronchial Tree, Via Natural or Artificial Opening Endoscopic (ICD-10-PCS; 2017-09-27 18:30)
PROC: 0W993ZX Drainage of Right Pleural Cavity, Percutaneous Approach, Diagnostic (ICD-10-PCS; 2017-09-27 20:00)
DX: J18.9 Pneumonia, unspecified organism (principal); J91.8 Pleural effusion in other conditions classified elsewhere; N39.0 Urinary tract infection, site not specified; R45.851 Suicidal ideations; J94.8 Other specified pleural conditions; E78.5 Hyperlipidemia, unspecified; E11.9 Type 2 diabetes mellitus without complications; E66.9 Obesity, unspecified; F41.9 Anxiety disorder, unspecified; F32.9 Major depressive disorder, single episode, unspecified; F17.200 Nicotine dependence, unspecified, uncomplicated; I10 Essential (primary) hypertension; K64.8 Other hemorrhoids; L25.9 Unspecified contact dermatitis, unspecified cause; R91.1 Solitary pulmonary nodule; R10.11 Right upper quadrant pain; R07.89 Other chest pain; Z68.34 Body mass index [BMI] 34.0-34.9, adult
CPT/HCPCS: 71045; 71250; 76942; 80048; 80053; 80061; 80202; 81001; 82565; 82962; 83036; 83605; 83615; 83735; 84100; 84157; 84443; 84520; 85025; 85610; 85730; 86480; 86803; 86850; 86900; 86901; 86920; 87070; 87081; 87086; 87102; 87116; 87340; 89051

== ENCOUNTER 2017-10-04 12:17 | Inpatient (IN) | payer OTHER ==
[2017-10-04] MEDS ORDERED: NACL 0.9% 3 ML SYG IV (13:00)
[2017-10-04 15:26] LABS: ABNORMAL IP MESSAGE 1; HEMATOCRIT 39.9 % (37.0-47.0); HEMOGLOBIN 13.1 g/dl (12.0-16.0); MEAN CORPUSCULAR HGB CONC 32.8 g/dl (32.0-37.0); MEAN CORPUSCULAR VOLUME 91.5 fl (82.0-101.0); MEAN PLATELET VOLUME 9.3 fl (7.4-10.4); PLATELET COUNT 517 10^3/UL (140-415); RED BLOOD COUNT 4.36 10^6/ul (4.20-5.40); RED CELL DISTRIBUTION WIDTH 11.7 % (11.5-14.5)
[2017-10-04 15:26] LABS: WHITE BLOOD COUNT 23.1 10^3/ul (4.8-10.8)
[2017-10-04] MEDS ORDERED: GLUCOSE GEL 15 GRAM TUBE BUCCAL (15:30)
[2017-10-04] MEDS ORDERED: GLUCOSE GEL 15 GRAM TUBE PO ×2 (15:30)
[2017-10-04] MEDS ORDERED: DEXTROSE 50% 50 ML SYRINGE IV ×2 (15:30)
[2017-10-04] MEDS ORDERED: GLUCAGON 1 MG INJ IM (15:30)
[2017-10-04 15:31] LABS: ADD MAN DIFF? YES; POSITIVE DIFF @See below
[2017-10-04] MEDS: BETAMETHASONE 0.05% 15 GM OINT TOP ×2 (16:02→20:44)
[2017-10-04] MEDS: DIPHENHYDRAMINE 50 MG INJ IV ×2 (16:03→23:23)
[2017-10-04 16:06] LABS: ALANINE AMINOTRANSFERASE 42 IU/L (13-69); ALBUMIN 3.2 g/dl (3.3-4.9); ALKALINE PHOSPHATASE 108 IU/L (42-121); ANION GAP 15 (8-16); ASPARTATE AMINO TRANSFERASE 31 IU/L (15-46); BILIRUBIN,INDIRECT 0.2 mg/dl (0-1.1); BILIRUBIN,TOTAL 0.2 mg/dl (0.2-1.3); BLOOD UREA NITROGEN 4 mg/dl (7-20); CALCIUM 8.2 mg/dl (8.4-10.2); CARBON DIOXIDE 22 mmol/L (21-31); CHLORIDE 102 mmol/L (97-110); CREATININE 0.52 mg/dl (0.44-1.00); GLUCOSE 150 mg/dl (70-220); POTASSIUM 3.7 mmol/L (3.5-5.1); SODIUM 135 mmol/L (135-144); TOTAL PROTEIN 6.1 g/dl (6.1-8.1)
[2017-10-04 16:10] LABS: BAND NEUTROPHILS #M 0.2 10^3/ul (0.0-0.6); BAND NEUTROPHILS % (M) 1 % (0-4); EOSINOPHILS % (M) 4 % (0-7); GIANT THROMBO% (M) 1 % (0-0); LYMPHOCYTES #M 0.6 10^3/ul (0.8-2.9); LYMPHOCYTES % (M) 3 % (15-51); MONOCYTE #M 1.6 10^3/ul (0.3-0.9); MONOCYTES % (M) 7 % (0-11); PLATELET ESTIMATE NORMAL; SEG NEUT #M 19.7 10^3/ul (1.6-7.5); SEGMENTED NEUTROPHILS (M) % 85 % (39-77); SMUDGE%M 5 % (0-0)
[2017-10-04] MEDS: INSULIN ASPART [NOVOLOG] 3 ML PEN SC ×2 (18:19→20:48)
[2017-10-04] MEDS: LORAZEPAM 2 MG INJ IV (20:45)
[2017-10-04] MEDS: SOD CHLORIDE 0.9% 500 ML IV (23:11)
[2017-10-04 23:59] LABS: LACTATE DEHYDROGENASE 644 IU/L (313-618)
[2017-10-05 01:52] LABS: LACTIC ACID 1.3 mmol/L (0.5-2.0)
[2017-10-05] MEDS: DIPHENHYDRAMINE 50 MG INJ IV ×3 (06:04→23:22)
[2017-10-05 06:59] LABS: ADD MAN DIFF? NO
[2017-10-05 07:12] LABS: ABNORMAL IP MESSAGE 1; BASOPHILS % 0.2 % (0.0-2.0); EOSINOPHILS # 1.2 10^3/ul (0.0-0.5); EOSINOPHILS % 5.4 % (0.0-7.0); HEMATOCRIT 37.4 % (37.0-47.0); HEMOGLOBIN 12.4 g/dl (12.0-16.0); LYMPHOCYTES # 2.1 10^3/ul (0.8-2.9); LYMPHOCYTES % 9.7 % (15.0-51.0); MEAN CORPUSCULAR HGB CONC 33.2 g/dl (32.0-37.0); MEAN CORPUSCULAR VOLUME 90.6 fl (82.0-101.0); MEAN PLATELET VOLUME 9.6 fl (7.4-10.4); MONOCYTE # 2.1 10^3/ul (0.3-0.9); MONOCYTES % 9.4 % (0.0-11.0); NEUTROPHIL # 16.3 10^3/ul (1.6-7.5); NEUTROPHILS % 74.4 % (39.0-77.0); PLATELET COUNT 541 10^3/UL (140-415); RED BLOOD COUNT 4.13 10^6/ul (4.20-5.40); RED CELL DISTRIBUTION WIDTH 11.9 % (11.5-14.5)
[2017-10-05 07:12] LABS: WHITE BLOOD COUNT 21.9 10^3/ul (4.8-10.8)
[2017-10-05 07:21] LABS: ALANINE AMINOTRANSFERASE 38 IU/L (13-69); ALBUMIN 2.8 g/dl (3.3-4.9); ALBUMIN/GLOBULIN RATIO 1.03; ALKALINE PHOSPHATASE 96 IU/L (42-121); ANION GAP 14 (8-16); ASPARTATE AMINO TRANSFERASE 18 IU/L (15-46); BILIRUBIN,INDIRECT 0.3 mg/dl (0-1.1); BILIRUBIN,TOTAL 0.3 mg/dl (0.2-1.3); BLOOD UREA NITROGEN 3 mg/dl (7-20); CALCIUM 7.9 mg/dl (8.4-10.2); CARBON DIOXIDE 24 mmol/L (21-31); CHLORIDE 101 mmol/L (97-110); CREATININE 0.58 mg/dl (0.44-1.00); GLUCOSE 156 mg/dl (70-220); POTASSIUM 3.3 mmol/L (3.5-5.1); SODIUM 136 mmol/L (135-144); TOTAL PROTEIN 5.5 g/dl (6.1-8.1)
[2017-10-05 07:27] LABS: POSITIVE DIFF @See below
[2017-10-05 07:37] LABS: LACTIC ACID 1.7 mmol/L (0.5-2.0)
[2017-10-05] MEDS: INSULIN ASPART [NOVOLOG] 3 ML PEN SC ×4 (08:00→23:32)
[2017-10-05] MEDS ORDERED: SERTRALINE 50 MG TAB PO (09:00)
[2017-10-05] MEDS: BETAMETHASONE 0.05% 15 GM OINT TOP ×2 (09:00→23:23)
[2017-10-05] MEDS: POTASSIUM CHLORIDE 20 MEQ POWDER FOR ORAL SOLN PO (11:21)
[2017-10-05] MEDS: LORAZEPAM 2 MG INJ IV (11:40)
[2017-10-05] MEDS: METOCLOPRAMIDE 10 MG INJ IV (18:01)
[2017-10-06] MEDS: ACETAMINOPHEN 325 MG TAB PO ×2 (03:58→18:38)
[2017-10-06] MEDS: METOCLOPRAMIDE 10 MG INJ IV ×5 (05:48→23:46)
[2017-10-06] MEDS: DIPHENHYDRAMINE 50 MG INJ IV ×3 (05:50→23:35)
[2017-10-06] MEDS: INSULIN ASPART [NOVOLOG] 3 ML PEN SC ×4 (08:00→21:47)
[2017-10-06] MEDS: BETAMETHASONE 0.05% 15 GM OINT TOP ×2 (09:13→21:00)
[2017-10-06] MEDS ORDERED: DIPHENHYDRAMINE 50 MG INJ IV (18:30)
[2017-10-06] MEDS: RANITIDINE 150 MG TAB PO (20:42)
[2017-10-06] MEDS: DIPHENHYDRAMINE 2%/ZINC 28.4 GM CR TOP (20:45)
[2017-10-07] MEDS: DIPHENHYDRAMINE 50 MG INJ IV ×2 (05:39→15:07)
[2017-10-07] MEDS: METOCLOPRAMIDE 10 MG INJ IV ×3 (05:39→18:00)
[2017-10-07] MEDS: INSULIN ASPART [NOVOLOG] 3 ML PEN SC ×3 (08:00→18:05)
[2017-10-07] MEDS: RANITIDINE 150 MG TAB PO (08:09)
[2017-10-07] MEDS: BETAMETHASONE 0.05% 15 GM OINT TOP (08:09)
[2017-10-07 08:43] LABS: ADD MAN DIFF? NO
[2017-10-07 08:49] LABS: ABNORMAL IP MESSAGE 1; BASOPHIL # 0.1 10^3/ul (0.0-0.1); BASOPHILS % 0.3 % (0.0-2.0); EOSINOPHILS # 1.2 10^3/ul (0.0-0.5); EOSINOPHILS % 7.1 % (0.0-7.0); HEMATOCRIT 36.6 % (37.0-47.0); HEMOGLOBIN 12.1 g/dl (12.0-16.0); LYMPHOCYTES # 3.2 10^3/ul (0.8-2.9); LYMPHOCYTES % 19.1 % (15.0-51.0); MEAN CORPUSCULAR HGB CONC 33.1 g/dl (32.0-37.0); MEAN CORPUSCULAR VOLUME 90.6 fl (82.0-101.0); MEAN PLATELET VOLUME 9.5 fl (7.4-10.4); MONOCYTE # 1.8 10^3/ul (0.3-0.9); MONOCYTES % 10.6 % (0.0-11.0); NEUTROPHIL # 10.3 10^3/ul (1.6-7.5); NEUTROPHILS % 61.5 % (39.0-77.0); PLATELET COUNT 518 10^3/UL (140-415); RED BLOOD COUNT 4.04 10^6/ul (4.20-5.40); RED CELL DISTRIBUTION WIDTH 11.9 % (11.5-14.5)
[2017-10-07 08:49] LABS: WHITE BLOOD COUNT 16.8 10^3/ul (4.8-10.8)
[2017-10-07 08:52] LABS: POSITIVE DIFF @See below
[2017-10-07 09:12] LABS: ALANINE AMINOTRANSFERASE 37 IU/L (13-69); ALBUMIN 2.8 g/dl (3.3-4.9); ALBUMIN/GLOBULIN RATIO 1.03; ALKALINE PHOSPHATASE 83 IU/L (42-121); ANION GAP 14 (8-16); ASPARTATE AMINO TRANSFERASE 17 IU/L (15-46); BILIRUBIN,INDIRECT 0.4 mg/dl (0-1.1); BILIRUBIN,TOTAL 0.4 mg/dl (0.2-1.3); BLOOD UREA NITROGEN 4 mg/dl (7-20); CARBON DIOXIDE 27 mmol/L (21-31); CHLORIDE 99 mmol/L (97-110); CREATININE 0.53 mg/dl (0.44-1.00); GLUCOSE 126 mg/dl (70-220); POTASSIUM 3.8 mmol/L (3.5-5.1); SODIUM 136 mmol/L (135-144); TOTAL PROTEIN 5.5 g/dl (6.1-8.1)
[2017-10-07] MEDS: PROPOFOL 20 ML (14:00)
[2017-10-07] MEDS: LIDOCAINE 2% (SDV) 5 ML INJ (14:04)
[2017-10-07] MEDS ORDERED: ONDANSETRON 4 MG INJ IV (14:30)
[2017-10-07] MEDS: LANSOPRAZOLE 30 MG CAP PO (18:00)
[2017-10-07] MEDS: SUCRALFATE (100 MG/ML) 10ML CUP PO (18:19)
== END 2017-10-07 18:20 | disposition home or self-care (01) | DRG 607 ==
LOC: MS4 12:17
PROVIDERS: Internal Medicine
PROC: 0HBBXZX Excision of Right Upper Arm Skin, External Approach, Diagnostic (ICD-10-PCS; principal; 2017-10-07 13:00)
PROC: 0DB68ZX Excision of Stomach, Via Natural or Artificial Opening Endoscopic, Diagnostic (ICD-10-PCS; 2017-10-07 13:00)
DX: L27.0 Generalized skin eruption due to drugs and medicaments taken internally (principal); J94.8 Other specified pleural conditions; K22.10 Ulcer of esophagus without bleeding; K25.9 Gastric ulcer, unspecified as acute or chronic, without hemorrhage or perforation; K44.9 Diaphragmatic hernia without obstruction or gangrene; E11.9 Type 2 diabetes mellitus without complications; E83.51 Hypocalcemia; E88.09 Other disorders of plasma-protein metabolism, not elsewhere classified; E87.8 Other disorders of electrolyte and fluid balance, not elsewhere classified; R10.9 Unspecified abdominal pain; R91.1 Solitary pulmonary nodule; D69.6 Thrombocytopenia, unspecified; S40.821A Blister (nonthermal) of right upper arm, initial encounter; X58.XXXA Exposure to other specified factors, initial encounter; Z79.4 Long term (current) use of insulin
CPT/HCPCS: 71250; 80053; 82962; 83605; 83615; 85025; 87040; 87081; 88305

== ENCOUNTER 2017-10-09 10:32 | Emergency (ER) | payer OTHER ==
[2017-10-09] MEDS: ONDANSETRON 4 MG INJ IV (11:17)
[2017-10-09] MEDS: METOCLOPRAMIDE 10 MG INJ IV (11:23)
[2017-10-09] MEDS: HYDROmorphONE 1 MG/5 ML IV SYRINGE IV (11:23)
[2017-10-09 11:25] LABS: ADD MAN DIFF? NO
[2017-10-09 11:44] LABS: ALANINE AMINOTRANSFERASE 32 IU/L (13-69); ALBUMIN 3.2 g/dl (3.3-4.9); ALBUMIN/GLOBULIN RATIO 1.03; ALKALINE PHOSPHATASE 75 IU/L (42-121); ANION GAP 12 (8-16); ASPARTATE AMINO TRANSFERASE 26 IU/L (15-46); BILIRUBIN,INDIRECT 0.3 mg/dl (0-1.1); BILIRUBIN,TOTAL 0.3 mg/dl (0.2-1.3); BLOOD UREA NITROGEN 4 mg/dl (7-20); CALCIUM 8.7 mg/dl (8.4-10.2); CARBON DIOXIDE 29 mmol/L (21-31); CHLORIDE 105 mmol/L (97-110); CREATININE 0.53 mg/dl (0.44-1.00); GLUCOSE 175 mg/dl (70-220); LIPASE 90 U/L (23-300); POTASSIUM 4.7 mmol/L (3.5-5.1); SODIUM 141 mmol/L (135-144); TOTAL PROTEIN 6.3 g/dl (6.1-8.1)
[2017-10-09 11:48] LABS: WHITE BLOOD COUNT 14.8 10^3/ul (4.8-10.8)
[2017-10-09 11:48] LABS: ABNORMAL IP MESSAGE 1; BASOPHIL # 0.1 10^3/ul (0.0-0.1); BASOPHILS % 0.5 % (0.0-2.0); EOSINOPHILS # 0.8 10^3/ul (0.0-0.5); EOSINOPHILS % 5.4 % (0.0-7.0); HEMATOCRIT 33.1 % (37.0-47.0); HEMOGLOBIN 10.9 g/dl (12.0-16.0); LYMPHOCYTES # 3.4 10^3/ul (0.8-2.9); LYMPHOCYTES % 23.2 % (15.0-51.0); MEAN CORPUSCULAR HEMOGLOBIN 30.6 pg (29.0-33.0); MEAN CORPUSCULAR HGB CONC 32.9 g/dl (32.0-37.0); MEAN PLATELET VOLUME 9.1 fl (7.4-10.4); MONOCYTE # 1.6 10^3/ul (0.3-0.9); MONOCYTES % 10.9 % (0.0-11.0); NEUTROPHIL # 8.7 10^3/ul (1.6-7.5); NEUTROPHILS % 58.5 % (39.0-77.0); PLATELET COUNT 469 10^3/UL (140-415); POSITIVE DIFF @See below; RED BLOOD COUNT 3.56 10^6/ul (4.20-5.40); RED CELL DISTRIBUTION WIDTH 12.2 % (11.5-14.5)
[2017-10-09] MEDS: DIPHENHYDRAMINE 50 MG INJ IV ×2 (12:50→12:52)
[2017-10-09] MEDS: ACETAMINOPHEN 500 MG TAB PO (14:36)
== END 2017-10-09 14:53 | disposition home or self-care (01) ==
LOC: E/R 10:32
DX: R10.13 Epigastric pain (principal); I10 Essential (primary) hypertension; E11.9 Type 2 diabetes mellitus without complications; Z79.84 Long term (current) use of oral hypoglycemic drugs
CPT/HCPCS: 36415; 74176; 80053; 83690; 85025; 96374; 96375; 99285-25

== ENCOUNTER 2018-11-30 12:40 | Day surgery (SDC) | payer OTHER ==
[2018-11-30] MEDS ORDERED: LIDOCAINE 100 MG SYRINGE (16:45)
[2018-11-30] MEDS ORDERED: PROPOFOL 40 ML (16:45)
[2018-11-30] MEDS ORDERED: PROPOFOL 200 MG INJ (16:45)
== END 2018-11-30 18:48 | disposition home or self-care (01) ==
LOC: GIL 12:40
DX: Z12.11 Encounter for screening for malignant neoplasm of colon (principal); K64.8 Other hemorrhoids; E11.9 Type 2 diabetes mellitus without complications; I10 Essential (primary) hypertension; E78.5 Hyperlipidemia, unspecified; K57.30 Diverticulosis of large intestine without perforation or abscess without bleeding
CPT/HCPCS: 45378; 82962